=== PATIENT | female | born 1980 | race Caucasian/White ===

== ENCOUNTER 2018-03-03 17:32 | Emergency (ER) | payer BC, OTHER ==
[2018-03-03] MEDS ORDERED: ONDANSETRON 4 MG/2 ML VIAL ONE (18:41)
[2018-03-03] MEDS ORDERED: MORPHINE 4 MG/ML SYR ONE (18:41)
[2018-03-03] MEDS ORDERED: NA CHLORIDE 0.9% 1,000 ML ONE (18:42)
[2018-03-03 18:58] LABS: Urine Bacteria <20 /HPF (<20); Urine Culture Reflex Order NOT NEEDED
[2018-03-03 18:59] LABS: Urine Blood 2+ (NEG); Urine Glucose NEGATIVE (NEG); Urine Protein NEGATIVE (NEG)
[2018-03-03 19:01] LABS: Bilirubin Direct 0.2 mg/dL (0-0.2); Bilirubin Total 0.5 mg/dL (0.2-1.0); Potassium 3.6 mmol/L (3.5-5.1)
[2018-03-03 19:19] LABS: Absolute Lymphocytes (CBC) 2.4 K/uL (0.7-4.9); Absolute Monocytes 0.8 K/uL (0.1-1.3); Absolute Neutrophil 4.1 K/uL (1.8-8.0); Basophils % 0.7 % (0-1.3); Hematocrit 38.6 % (36.0-45.0); Lymphocytes % 31.5 % (15.3-44.8); MCH 33.6 pg (27.0-35.0); MCV 95.6 fL (80-100); Monocytes % 10.9 % (3.3-12.3); RBC Red Blood Cell Count 4.04 M/uL (3.86-4.86)
--- NOTE | 2018-03-03 21:02 | RAD REPORT ---
EXAM DESCRIPTION: CT - Abdomen Pelvis W Contrast - 03/03/2018 8:39 pm CLINICAL HISTORY: Abdominal pain with nausea and vomiting. Epigastric pain. COMPARISON: None. TECHNIQUE: Computed axial tomography of the abdomen and pelvis was obtained. 100 cc Isovue-300 is ad ministered intravenously. Oral contrast was given. All CT scans are performed using dose optimization technique as appropriate and may include automated exposure control or mA/KV adjustment according to patient size. FINDINGS: Mild fatty infiltration liver is present. Spleen, pancreas, adrenals and kidneys appear unremarkable. . There is no evidence of diverticulitis A umbilical hernia contains fat. The neck measures 1 centimeter. Mild stranding is present within the fat. Mild stranding is present within the omentum. A ventral hernia within the mid to lower abdomen contains a loop of dilated bowel. Mild stranding is present within the fat. A trace amount of fluid is present within the pelvis Spondylosis involves lumbar spine resulting spinal stenosis IMPRESSION: Small umbilical hernia containing fat. Mild stranding within the fat indicates inflammat ion Ventral hernia containing a loop of dilated bowel. Mild stranding within the fat indicates inflammati on Mild stranding within the omentum to the left of midline is nonspecific. It may represent an early in farct.
--- NOTE | 2018-03-03 21:41 | EDPHYS ---
Physician Documentation [facility] Name: Ginger Beltrán Age: 37 yrs Sex: Female : 1980 Arrival Date: 03/03/2018 Time: 17:36 Bed 25 Private MD: ED Physician Elmer Monge HPI: 03/03 18:21 This 37 yrs old Female presents to ER via Ambulatory with complaints of rocío Hernia. 18:21 The patient presents with abdominal pain in the periumbilical area. Onset: The rocío symptoms/episode began/occurred just prior to arrival, this morning. The patient presents to the emergency department with nausea, vomiting, abdominal pain, of the umbilical area. Onset: The symptoms/episode began/occurred just prior to arrival, this morning. Possible causes: unknown. The symptoms are aggravated by movement, The symptoms are alleviated by remaining still, supine position. The symptoms do not radiate. Associated signs and symptoms: Pertinent positives: nausea, vomiting. 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 - Social history:: Smoking status: Patient/guardian denies using tobacco. - Ebola Screening: : Patient denies travel to an Ebola-affected area in the 21 days before illness onset. - Family history:: not pertinent. ROS: 18:21 Constitutional: Negative for fever, chills, and weight loss, Eyes: Negative for injury, rocío pain, redness, and discharge, ENT: Negative for injury, pain, and discharge, Neck: Negative for injury, pain, and swelling, Cardiovascular: Negative for chest pain, palpitations, and edema, Respiratory: Negative for shortness of breath, cough, wheezing, and pleuritic chest pain, Back: Negative for injury and pain, : Negative for injury, bleeding, discharge, and swelling, MS/Extremity: Negative for injury and deformity, Skin: Negative for injury, rash, and discoloration, Neuro: Negative for headache, weakness, numbness, tingling, and seizure, Psych: Negative for depression, anxiety, suicide ideation, homicidal ideation, and hallucinations, Allergy/Immunology: Negative for hives, rash, and allergies, Endocrine: Negative for neck swelling, polydipsia, polyuria, polyphagia, and marked weight changes, Hematologic/Lymphatic: Negative for swollen nodes, abnormal bleeding, and unusual bruising. 18:21 Abdomen/GI: Positive for abdominal pain, nausea and vomiting, of the umbilical area. Exam: 18:21 Constitutional: This is a well developed, well nourished patient who is awake, alert, rocío and in no acute distress. Head/Face: Normocephalic, atraumatic. Eyes: Pupils equal round and reactive to light, extra-ocular motions intact. Lids and lashes normal. Conjunctiva and sclera are non-icteric and not injected. Cornea within normal limits. Periorbital areas with no swelling, redness, or edema. ENT: Nares patent. No nasal discharge, no septal abnormalities noted. Tympanic membranes are normal and external auditory canals are clear. Oropharynx with no redness, swelling, or masses, exudates, or evidence of obstruction, uvula midline. Mucous membranes moist. Neck: Trachea midline, no thyromegaly or masses palpated, and no cervical lymphadenopathy. Supple, full range of motion without nuchal rigidity, or vertebral point tenderness. No Meningismus. Chest/axilla: Normal chest wall appearance and motion. Nontender with no deformity. No lesions are appreciated. Cardiovascular: Regular rate and rhythm with a normal S1 and S2. No gallops, murmurs, or rubs. Normal PMI, no JVD. No pulse deficits. Respiratory: Lungs have equal breath sounds bilaterally, clear to auscultation and percussion. No rales, rhonchi or wheezes noted. No increased work of breathing, no retractions or nasal flaring. Back: No spinal tenderness. No costovertebral tenderness. Full range of motion. Skin: Warm, dry with normal turgor. Normal color with no rashes, no lesions, and no evidence of cellulitis. MS/ Extremity: Pulses equal, no cyanosis. Neurovascular intact. Full, normal range of motion. Neuro: Awake and alert, GCS 15, oriented to person, place, time, and situation. Cranial nerves II-XII grossly intact. Motor strength 5/5 in all extremities. Sensory grossly intact. Cerebellar exam normal. Normal gait. Psych: Awake, alert, with orientation to person, place and time. Behavior, mood, and affect are within normal limits. 18:21 Abdomen/GI: Inspection: distension, that is mild, in the umbilical area, obese Bowel sounds: normal, Palpation: moderate abdominal tenderness, Liver: no appreciated palpable abnormalities, Hernia: not appreciated. Vital Signs: 17:46 BP 133 / 96; Pulse 68; Resp 18; Temp 98.0; Pulse Ox 100% on R/A; Weight 88.45 kg (R); aj1 Height 5 ft. 4 in. (162.56 cm); Pain 7/10; 18:45 BP 118 / 74; Pulse 76; Resp 16; Pulse Ox 100% on R/A; aj 18:54 BP 109 / 67; Pulse 69; Resp 17; Pulse Ox 100% on R/A; aj 19:05 BP 113 / 79; Pulse 62; Resp 16; Pulse Ox 99% ; Pain 0/10; cr4 20:00 BP 114 / 72; Pulse 66; Resp 16; Pulse Ox 100% ; Pain 0/10; cr4 21:00 BP 116 / 65; Pulse 76; Resp 18; Pulse Ox 100% ; Pain 0/10; cr4 17:46 Body Mass Index 33.47 (88.45 kg, 162.56 cm) aj1 MDM: 17:49 Patient medically screened. [facility] 18:25 Data reviewed: vital signs, nurses notes. Data reviewed: lab test result(s), radiologic rocío studies, CT scan. 21:32 Physician consultation: Rudy Baird MD was called at 21:25, was contacted at 21:25, regarding patient's condition, and will see patient in office, next week. 03/03 18:20 Order name: Amylase, Serum; Complete Time: 19:17 [facility] 03/03 18:20 Order name: Basic Metabolic Panel; Complete Time: 19:17 [facility] 03/03 18:20 Order name: CBC with Diff; Complete Time: 19:50 [facility] 03/03 19:50 Interpretation: Reviewed. cp 03/03 18:20 Order name: Creatinine for Radiology; Complete Time: 19:17 [facility] 03/03 18:20 Order name: Hepatic Function; Complete Time: 19:17 [facility] 03/03 18:20 Order name: Lipase; Complete Time: 19:17 [facility] 03/03 18:20 Order name: Urine Test (obtain specimen); Complete Time: 18:43 [facility] 03/03 18:20 Order name: Urine Microscopic Only; Complete Time: 19:17 [facility] 03/03 18:20 Order name: CT Abd/Pelvis - W/Contrast; Complete Time: 21:19 [facility] 03/03 21:35 Interpretation: Report reviewed. cp 03/03 18:38 Order name: Urine Dipstick--Ancillary (enter results); Complete Time: 19:17 03/03 18:38 Order name: Urine --Ancillary (enter results); Complete Time: 19:17 03/03 18:20 Order name: IV Saline Lock; Complete Time: 18:43 [facility] 03/03 18:20 Order name: Labs collected and sent; Complete Time: 18:43 [facility] 03/03 18:20 Order name: Urine Dipstick-Ancillary (obtain specimen); Complete Time: 18:43 [facility] 03/03 21:27 Order name: PO challenge; Complete Time: 21:41 cp Administered Medications: 18:42 Drug: morphine 4 mg Route: IVP; Site: left antecubital; aj 19:05 Follow up: Response: Pain is decreased cr4 18:42 Drug: Zofran 4 mg Route: IVP; Site: left antecubital; aj 19:05 Follow up: Response: No adverse reaction; Nausea is decreased cr4 18:43 Drug: NS 0.9% 1000 ml Route: IV; Rate: 1 bolus; Site: left antecubital; aj 20:00 Follow up: IV Status: Completed infusion; IV Intake: 1000ml cr4 Disposition: 03/03/18 21:40 Discharged to Home. Impression: Ventral hernia - reduced, Abdominal tenderness, Umbilical hernia without obstruction or gangrene. - Condition is Stable. - Discharge Instructions: Abdominal Pain, Adult, Abdominal Pain, Adult, Ppyz-mo-Ciht, Ventral Hernia. - Prescriptions for Bentyl 20 mg Oral Tablet - take 1 tablet by ORAL route every 6 hours As needed; 20 tablet. Colace 100 mg Oral Tablet - take 1 tablet by ORAL route every 12 hours; 14 tablet. Pepcid 20 mg Oral Tablet - take 1 tablet by ORAL route every 12 hours for 10 days; 20 tablet. Tylenol- Codeine #3 300-30 mg Oral Tablet - take 2 tablets by ORAL route every 6 hours As needed; 20 tablet. - Medication Reconciliation Form, Thank You Letter, Antibiotic Education, Prescription Opioid Use form. - Follow up: Rudy Baird; When: 2 - 3 days; Reason: Recheck today's complaints, Continuance of care, Re-evaluation by your physician. Follow up: Rudy Baird MD; When: 03/07/2018; Reason: Recheck today's complaints, in clinic. - Problem is new. - Symptoms have improved. Addendum: 03/07/2018 08:23 Co-signature as Attending Physician, Elmer Monge MD I agree with the assessment and c mancera plan of care. Signatures: Dispatcher [employer] EDKayleigh Pimentel RN RN aj1 Mónica Jiménez RN Elmer Victor MD MD cha Ruiz, Claudia RN RN cr4 Elmer Robles PA PA cp Corrections: (The following items were deleted from the chart) 03/03 21:55 21:40 03/03/2018 21:40 Discharged to Home. Impression: Ventral hernia - reduced; cr4 Abdominal tenderness; Umbilical hernia without obstruction or gangrene. Condition is Stable. Discharge Instructions: Abdominal Pain, Adult, Abdominal Pain, Adult, Rasi-ch-Wees, Ventral Hernia. Prescriptions for Bentyl 20 mg Oral Tablet - take 1 tablet by ORAL route every 6 hours As needed; 20 tablet, Colace 100 mg Oral Tablet - take 1 tablet by ORAL route every 12 hours; 14 tablet, Pepcid 20 mg Oral Tablet - take 1 tablet by ORAL route every 12 hours for 10 days; 20 tablet, Tylenol-Codeine #3 300-30 mg Oral Tablet - take 2 tablets by ORAL route every 6 hours As needed; 20 tablet. and Forms are Medication Reconciliation Form, Thank You Letter, Antibiotic Education, Prescription Opioid Use. Follow up: Rudy Baird; When: 03/07/2018; Reason: Recheck today's complaints, in clinic. Problem is new. Symptoms have improved. cp
--- NOTE | 2018-03-03 21:41 | ER ---
Nurse's Notes [facility] Name: Ginger Beltrán Age: 37 yrs Sex: Female : 1980 Arrival Date: 03/03/2018 Time: 17:36 Bed 25 Private MD: Diagnosis: Ventral hernia-reduced;Abdominal tenderness;Umbilical hernia without obstruction or gangrene Presentation: 03/03 17:42 Presenting complaint: Patient states: She's had an umbilical hernia for the past 8 aj1 years, she has had intermittent pain with it, but today the pain has been severe, she started feeling nauseated and then has been vomiting for the past hour and a half. Reports epigastric pain. Denies fever, diarrhea. Transition of care: patient was not received from another setting of care. Onset of symptoms was March 03, 2018. Risk Assessment: Do you want to hurt yourself or someone else? Patient reports no desire to harm self or others. Initial Sepsis Screen: Does the patient meet any 2 criteria? No. Patient's initial sepsis screen is negative. Does the patient have a suspected source of infection? No. Patient's initial sepsis screen is negative. Care prior to arrival: None. 17:42 Method Of Arrival: Ambulatory aj1 17:42 Acuity: CHELY 3 aj1 Triage Assessment: 17:46 General: Appears in no apparent distress. comfortable, Behavior is cooperative, aj1 anxious, crying. Pain: Complains of pain in epigastric area Pain currently is 7 out of 10 on a pain scale. Neuro: Level of Consciousness is awake, alert, obeys commands. Cardiovascular: Patient's skin is warm and dry. Respiratory: Airway is patent Respiratory effort is even, unlabored, Respiratory pattern is regular, symmetrical. GI: Reports upper abdominal pain, nausea, vomiting. 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 - Social history:: Smoking status: Patient/guardian denies using tobacco. - Ebola Screening: : Patient denies travel to an Ebola-affected area in the 21 days before illness onset. - Family history:: not pertinent. Screenin:40 Abuse screen: Denies threats or abuse. Denies injuries from another. Nutritional aj screening: No deficits noted. Tuberculosis screening: No symptoms or risk factors identified. Fall Risk None identified. Assessment: 18:40 General: Appears in no apparent distress. comfortable, Behavior is calm, cooperative, aj appropriate for age. Pain: Complains of pain in umbilical area. Neuro: Level of Consciousness is awake, alert, obeys commands, Oriented to person, place, time, situation, Appropriate for age. Respiratory: Airway is patent Trachea midline Respiratory effort is even, unlabored, Respiratory pattern is regular, symmetrical. GI: Abdomen is flat, Reports upper abdominal pain. GI: Reports nausea, vomiting. Derm: Skin is intact, is healthy with good turgor, Skin is pink, warm \T\ dry. normal. 19:06 Reassessment: Patient and/or family updated on plan of care and expected duration. Pain cr4 level reassessed. Patient is alert, oriented x 3, equal unlabored respirations, skin warm/dry/pink. Patient states feeling better. Patient states symptoms have improved. 20:38 Reassessment: No changes from previously documented assessment. Patient and/or family cr4 updated on plan of care and expected duration. Pain level reassessed. Patient is alert, oriented x 3, equal unlabored respirations, skin warm/dry/pink. 21:30 Reassessment: Patient and/or family updated on plan of care and expected duration. Pain cr4 level reassessed. Patient is alert, oriented x 3, equal unlabored respirations, skin warm/dry/pink. Patient states feeling better. Patient states symptoms have improved. 21:41 Reassessment: PO CHALLENGE TOLERATED. rv Vital Signs: 17:46 BP 133 / 96; Pulse 68; Resp 18; Temp 98.0; Pulse Ox 100% on R/A; Weight 88.45 kg (R); aj1 Height 5 ft. 4 in. (162.56 cm); Pain 7/10; 18:45 BP 118 / 74; Pulse 76; Resp 16; Pulse Ox 100% on R/A; aj 18:54 BP 109 / 67; Pulse 69; Resp 17; Pulse Ox 100% on R/A; aj 19:05 BP 113 / 79; Pulse 62; Resp 16; Pulse Ox 99% ; Pain 0/10; cr4 20:00 BP 114 / 72; Pulse 66; Resp 16; Pulse Ox 100% ; Pain 0/10; cr4 21:00 BP 116 / 65; Pulse 76; Resp 18; Pulse Ox 100% ; Pain 0/10; cr4 17:46 Body Mass Index 33.47 (88.45 kg, 162.56 cm) aj1 ED Course: 17:36 Patient arrived in ED. mr 17:46 Triage completed. aj1 17:46 Arm band placed on Patient placed in an exam room. aj1 17:49 Elmer Monge MD is Attending Physician. [facility] 18:00 Mónica Jiménez, BRITNI is Primary Nurse. aj 18:26 Oral contrast given. vm2 18:40 Patient has correct armband on for positive identification. Bed in low position. Side aj rails up X 1. Adult w/ patient. 18:40 Inserted saline lock: 20 gauge in left antecubital area, using aseptic technique. Blood aj collected. 20:33 CT completed. Patient tolerated procedure well. Patient moved to CT via wheelchair. eh 20:39 CT Abd/Pelvis - W/Contrast In Process Unspecified. EDMS 20:43 Elmer Robles PA is PHCP. cp 21:39 Rudy Baird MD is Referral Physician. cp 21:39 Referral Physician role handed off by Rudy Baird MD cp 21:39 Rudy Baird MD is Referral Physician. cp 21:54 No provider procedures requiring assistance completed. IV discontinued, intact, cr4 bleeding controlled, No redness/swelling at site. Administered Medications: 18:42 Drug: morphine 4 mg Route: IVP; Site: left antecubital; aj 19:05 Follow up: Response: Pain is decreased cr4 18:42 Drug: Zofran 4 mg Route: IVP; Site: left antecubital; aj 19:05 Follow up: Response: No adverse reaction; Nausea is decreased cr4 18:43 Drug: NS 0.9% 1000 ml Route: IV; Rate: 1 bolus; Site: left antecubital; aj 20:00 Follow up: IV Status: Completed infusion; IV Intake: 1000ml cr4 Intake: 20:00 IV: 1000ml; Total: 1000ml. cr4 Outcome: 21:40 Discharge ordered by . cp 21:54 Discharged to home ambulatory, with family. cr4 21:54 Condition: improved 21:54 Discharge instructions given to patient, family, Instructed on discharge instructions, follow up and referral plans. medication usage, Demonstrated understanding of instructions, follow-up care, medications, Prescriptions given X 4. 21:55 Patient left the ED. cr4 Signatures: Dispatcher [employer] EDMS Kayleigh Marcos RN RN aj1 Mónica Jiménez RN RN aj Anderson, Corey, MD MD cha Rivera, Maria mr Thompson, [facility] Keila Vaughn RN RN cr4 Elmer Robles PA PA cp McGuire, Victoria [facility] Wayne Mathias RN RN rv Corrections: (The following items were deleted from the chart) 20:34 20:33 Patient moved back from [facility] 21:54 21:52 Pulse 76bpm; cr4 cr4
== END 2018-03-03 21:55 | disposition home or self-care (01) ==
LOC: ER 17:32
DX: K43.9 Ventral hernia without obstruction or gangrene (principal); K42.9 Umbilical hernia without obstruction or gangrene; E03.9 Hypothyroidism, unspecified; Z88.0 Allergy status to penicillin
CPT/HCPCS: 36415; 74177; 80048; 80076; 81003; 81015; 81025; 82150; 83690; 85025; 96361; 96374; 96375; 99284; J2405; J7030; Q9967

== ENCOUNTER 2018-03-16 07:58 | Day surgery (SDC) | payer BC ==
[2018-03-16] MEDS ORDERED: Ringers Lactate 1,000 ML IV ONE (08:13)
[2018-03-16] MEDS ORDERED: VANCOMYCIN 1 GM/250 ML BAG ONE (08:14)
[2018-03-16 08:24] LABS: Specific Gravity 1.025 (1.005-1.030)
[2018-03-16] MEDS ORDERED: LIDOCAINE 2% MPF 5 ML VIAL ONE (09:04)
[2018-03-16] MEDS ORDERED: MIDAZOLAM HCL 2 MG/2 ML INJ ONE (09:04)
[2018-03-16] MEDS ORDERED: ONDANSETRON HCL 40 MG/20 ML VIAL ONE (09:04)
[2018-03-16] MEDS ORDERED: PROPOFOL 200 MG/20 ML VIAL IV ONE (09:04)
[2018-03-16] MEDS ORDERED: FENTANYL CITR 250 MCG/5 ML ONE (09:04)
[2018-03-16] MEDS ORDERED: ROCURONIUM 50 MG/5 ML VIAL IV ONE (09:04)
[2018-03-16] MEDS ORDERED: BUPIVACA 0.5%/EPI 0.0005%/PF 30 ML VIAL ONE (09:16)
[2018-03-16] MEDS ORDERED: KETOROLAC 30 MG/ML INJ ONE (10:50)
[2018-03-16] MEDS ORDERED: MORPHINE 10 MG/ML VIAL ONE (10:50)
--- NOTE | 2018-03-16 10:58 | P.OP ---
Preoperative diagnosis: Ventral Abdominal Hernia ~6cm x 3cm Postoperative diagnosis: Ventral Abdominal Hernia ~6cm x 3cm Primary procedure: Laparoscopic Ventral Hernia Repair with Mesh Anesthesia: GETA + Local Estimated blood loss: <10cc Specimen: none Findings: Ventral Abdominal Hernia ~6cm x 3cm Complications: None Implants: Bard Ventralite [id number] mesh with echo position Transferred to: Recovery Room Condition: Good
[2018-03-16] MEDS: MEPERIDINE HCL 50 MG/ML AMP ONE ×4 (11:16→11:33)
--- NOTE | 2018-03-16 11:53 | OP ---
Date of Procedure: 03/16/2018 Surgeon: Rudy Baird MD, Preoperative Diagnosis: Ventral abdominal hernia approximately 6 cm x 3 cm. Postoperative Diagnosis: Ventral abdominal hernia approximately 6 cm x 3 cm. Procedure Performed: Laparoscopic ventral hernia repair with mesh. Anesthesia: General endotracheal plus local, 0.25% Marcaine with epinephrine. Estimated Blood Loss: Less than 10 cc. Specimen: None. Findings: Ventral abdominal hernia, 6 cm x 3 cm, with preperitoneal fat contained within. Complications: None. Implants: Bard Ventralight ST 15 cm x 10 cm mesh with Echo Positioning System. Disposition: Transferred to the recovery room in good condition. Procedure In Detail: After informed consent was obtained, the patient was brought to the operating r oom, prepped and draped in the usual sterile fashion. After adequate anesthesia achieved, a left lat eral mid abdominal incision was made after appropriately anesthetizing the skin and a 5 mm 0 degree o ptical trocar was introduced in the abdomen without evidence of complication. Insufflation was obtai david to 15 mmHg at this time, and the abdomen was inspected. There was a ventral hernia appreciated i n the supraumbilical position and slightly epigastric, and it appeared to be about 6 cm x approximate ly 3 cm in size. Using skin markings and ruler, this was confirmed. The additional trocar was place d in the right lower quadrant under direct visualization without evidence of complication. This was also a 5 mm trocar placed without evidence of complication. After this was placed appropriately, the left lower quadrant incision was enlarged and a 12 mm trocar was placed under direct visualization w ithout evidence of complications, so a total of 2 trocars were placed at that time. After using the LigaSure device to grasp the preperitoneal fat and dissected down to the abdominal compartment, this was dissected free off including the falciform ligament, which had some fat extending into the hernia . This adipose tissue was dissected free using the LigaSure device and found to be viable and so was left in the normal anatomic position, still connected to the falciform ligament, which was slightly taken down superiorly to allow for adequate placement of abdominal mesh to the abdominal fascia in th e preperitoneal space. The 15 cm x [address] mesh was then placed in the abdomen thr ough the lateral trocar. The Echo Positioning System was used to deploy the mesh after finding the m id central portion of the defect and making a separate stab incision through the abdominal wall and g rasping with a Boo-Yessenia suture passer the balloon inflation system and bringing it up. The in flation system was then deployed. The mesh was positioned appropriately using a grasper and found to be in a proper anatomic position. I then used the absorbable fixation system to tack the mesh to th e anterior abdominal wall with good approximation of the tissues under desufflation pressure of appro ximately 10 mm. I then re-insufflated and desufflated the abdomen and inspected the mesh, and found it to be in good anatomic position with good approximation of the anterior abdominal wall. The later al 12 mm trocar was then removed under direct visualization without evidence of complication and the site closed with a Boo-Yessenia suture passer with 0 Vicryl in interrupted fashion with good appro ximation of the tissues. The abdomen was then completely desufflated under direct visualization with out evidence of complication and the skin incisions were all copiously irrigated after removing the t rocars. The skin incisions were then all closed with a 4-0 Monocryl in a running fashion. Dermabond placed over top the patient. The patient tolerated the procedure without evidence of complication and transferred to the PACU in good condition. All counts were correct at the end the c ase. RICK/MAIN Voice ID: [id number] Report ID: [id number]
[2018-03-16] MEDS ORDERED: HYDROCODONE/APAP 5/325 MG TAB ONE (13:07)
== END 2018-03-16 14:35 | disposition home or self-care (01) ==
LOC: OR 07:58
PROVIDERS: ATTEND Surgery
PROC: 0WUF4JZ Supplement Abdominal Wall with Synthetic Substitute, Percutaneous Endoscopic Approach (ICD-10-PCS; principal; 2018-03-16 09:00)
DX: K43.9 Ventral hernia without obstruction or gangrene (principal); E03.8 Other specified hypothyroidism; Z88.0 Allergy status to penicillin; Z80.1 Family history of malignant neoplasm of trachea, bronchus and lung
CPT/HCPCS: 81025; J2175; J2250; J2405; J3370